=== PATIENT | female | born 1990 | race Caucasian/White ===

== ENCOUNTER 2016-10-23 19:53 | Emergency (ER) | payer OTHER ==
[2016-10-23 20:07] VITALS: BP 113/72
--- NOTE | 2016-10-23 20:36 | UC ---
Complaint Female HPI - HPI Summary HPI Summary: Pt delivered baby vaginally, no complications 09/22/16. Had some PP blood loss, but did not need transfusion or extra monitoring. By about 1 week PP was able to get by with panty liners and bleeding seemed minimal. It picked up this week , and today pt had large gush when she stood up after sitting. said it soaked her full-size pad as well as some of her clothing all at once. Passed a large clot at the time, but since then bleeding has been mild again. Called Ob office and they said it was probably normal. Denies fever, abdominal pain, back pain, foul odor from discharge, or dizziness/fainting. - History Of Current Complaint Chief Complaint: UCGU Stated Complaint: PERSONAL Time Seen by Provider: 10/23/16 20:13 Hx Obtained From: Patient Hx Last Menstrual Period: 11 months ago bleeding now ?: No Onset/Duration: Lasting Weeks Timing: Constant Severity Initially: Mild Severity Currently: Moderate Character: Dull - pressure Aggravating Factor(s): Nothing Alleviating Factor(s): Nothing Associated Signs And Symptoms: Positive: Vaginal Bleeding/Discharge - Allergies/Home Medications Allergies/Adverse Reactions: Allergies Allergy/AdvReac Type Severity Reaction Status Date / Time No Known Allergies Allergy Verified 10/23/16 20:07 Home Medications: Home Medications Multivit-Min W/Fe-FA [ and Iron] 10/23/16 [History] PMH/Surg Hx/FS Hx/Imm Hx Previously Healthy: Yes - Surgical History Surgical History: None - Family History Known Family History: Positive: Hypertension - Social History Lives: With Family Alcohol Use: None Substance Use Type: None Smoking Status (MU): Never Smoked Tobacco Review of Systems Constitutional: Negative Skin: Negative Eyes: Negative ENT: Negative Respiratory: Negative Cardiovascular: Negative Gastrointestinal: Negative Genitourinary: Other - vaginal bleeding Motor: Negative Neurovascular: Negative Musculoskeletal: Negative Neurological: Negative Psychological: Negative All Other Systems Reviewed And Are Negative: Yes Physical Exam Triage Information Reviewed: Yes Appearance: Well-Appearing, No Pain Distress, Well-Nourished Vital Signs: Initial Vital Signs Temp 98.4 F 10/23/16 20:01 Pulse 77 10/23/16 20:01 Resp 18 10/23/16 20:01 BP 113/72 10/23/16 20:01 Pulse Ox 100 10/23/16 20:01 Vital Signs Reviewed: Yes Eye Exam: Normal, Other - PERRL, pink lower eyelids Eyes: Positive: Conjunctiva Clear ENT Exam: Normal ENT: Positive: Normal ENT inspection, Hearing grossly normal, Pharynx normal, TMs normal Dental Exam: Normal Neck exam: Normal Neck: Positive: Supple, Nontender, No Lymphadenopathy Respiratory Exam: Normal Respiratory: Positive: Chest non-tender, Lungs clear, Normal breath sounds, No respiratory distress, No accessory muscle use Cardiovascular Exam: Normal Cardiovascular: Positive: RRR, No Murmur Abdomen Description: Positive: Nontender, No Organomegaly, Soft. Negative: CVA Tenderness (R), CVA Tenderness (L), Distended, Guarding, McBurney's Point Tenderness Musculoskeletal Exam: Normal Neurological Exam: Normal Psychological Exam: Normal Skin Exam: Normal Complaint Female Dx - Differential Dx/Diagnosis Provider Diagnoses: bleeding Discharge - Discharge Plan Condition: Stable Disposition: HOME Patient Education Materials: Bleeding (ED) Referrals: Ronnie Workman MD [Primary Care Provider] - Additional Instructions: Bloodwork sent to evaluate for anemia. As we discussed, your amount of bleeding and irregular pattern do sound like they are within the realm of normal. Sometimes a large clot is passed late from the site of placental attachment in the uterus. I would expect the bleeding to steadily decrease from here. If not, and especially if you develop fever, fatigue, fainting, or foul odor from your discharge, you should follow up promptly with your Ob-Product Safety Technician. Please don't hesitate to go to the emergency department if you start saturating 1 or more pads per hour.
[2016-10-24 10:55] LABS: Hematocrit 38 % (35-47); Hemoglobin 12.3 g/dl (12.0-16.0); Mean Corpuscular HGB Conc 33 g/dl (31-36); Mean Corpuscular Hemoglobin 28 pg (27-31); Mean Corpuscular Volume 87 fL (80-97); Mean Platelet Volume 9 um3 (7.4-10.4); Red Blood Count 4.34 10^6/ul (4.0-5.4); Red Cell Distribution Width 15 % (10.5-15); White Blood Count 9.2 10^3/ul (3.5-10.8)
== END 2016-10-23 20:45 | disposition home or self-care (01) ==
LOC: UCEAST 19:53
DX: O72.2 Delayed and secondary postpartum hemorrhage (principal)
CPT/HCPCS: 36415; 85025; 99211; G0463

== ENCOUNTER 2017-07-07 09:34 | Emergency (ER) | payer SELFPAY ==
[2017-07-07 09:48] VITALS: BP 106/72
--- NOTE | 2017-07-07 10:48 | UC ---
FLU HPI - HPI Summary HPI Summary: Pt presents with dry cough and sinus congestion that began yesterday. Her was recently diagnosed with the flu and she is concerned about this. Denies fever, chills, SOB, chest pain, abdominal pain, n/v/d/c, or body aches. - History of Current Complaint Chief Complaint: UCGeneralIllness Stated Complaint: FLU SYMPTOMS Time Seen by Provider: 07/07/17 10:39 Hx Obtained From: Patient Hx Last Menstrual Period: 06/09/17 Onset/Duration: Sudden Onset Severity Currently: Moderate Severity Initially: Moderate Pain Intensity: 5 Pain Scale Used: 0-10 Numeric - Allergy/Home Medications Allergies/Adverse Reactions: Allergies Allergy/AdvReac Type Severity Reaction Status Date / Time No Known Allergies Allergy Verified 07/07/17 09:45 Home Medications: Home Medications NK [No Home Medications Reported] 07/07/17 [History Confirmed 07/07/17] PMH/Surg Hx/FS Hx/Imm Hx Previously Healthy: Yes - Surgical History Surgical History: None - Family History Known Family History: Positive: Hypertension - Social History Occupation: Unemployed Lives: With Family Alcohol Use: None Substance Use Type: None Smoking Status (MU): Never Smoked Tobacco Review of Systems Constitutional: Negative Skin: Negative Eyes: Negative ENT: Sinus Congestion Respiratory: Cough Cardiovascular: Negative Gastrointestinal: Negative Neurovascular: Negative Neurological: Negative Psychological: Negative All Other Systems Reviewed And Are Negative: Yes Physical Exam - Summary Physical Exam Summary: GENERAL: NAD. WDWN. No pain distress. SKIN: No rashes, sores, ulcers, masses, lesions. HEENT: Head: AT/NC Eyes: EOM intact. Conjunctiva clear without inflammation or discharge. Ears: Hearing grossly normal. TMs intact, no bulging, erythema, or edema. Nose: Nasal mucosa pink and moist. NTTP maxillary and frontal sinus. Throat: Posterior oropharynx without exudates, erythema, or tonsillar enlargement. Uvula midline. NECK: Supple. Nontender. No lymphadenopathy. CHEST: CTAB. No r/r/w. No accessory muscle use. Breathing comfortably and in no distress. CV: RRR. Without m/r/g. Pulses intact. Brisk cap refill. NEURO: Alert. CN II-XII grossly intact. PSYCH: Age appropriate behavior. Triage Information Reviewed: Yes Vital Signs: Initial Vital Signs Temp 99.5 F 07/07/17 09:45 Pulse 100 07/07/17 09:45 Resp 20 07/07/17 09:45 BP 106/72 07/07/17 09:45 Pulse Ox 99 07/07/17 09:45 Flu Course/Dx - Course Course Of Treatment: Offered test for flu, but she declined after I explained pos/neg results would not change treatment. Advised rest, fluids, and ibuprofen for fevers/discomfort. - Differential Dx/Diagnosis Provider Diagnoses: Viral syndrome Discharge - Sign-Out/Discharge Documenting (check all that apply): Discharge - Discharge Plan Condition: Stable Disposition: HOME Patient Education Materials: Viral Syndrome (ED) Referrals: Ronnie Workman MD [Primary Care Provider] - Additional Instructions: If you develop a fever, shortness of breath, chest pain, new or worsening symptoms - please call your PCP or go to the ED. - Billing Disposition and Condition Condition: STABLE Disposition: HOME
== END 2017-07-07 10:55 | disposition home or self-care (01) ==
LOC: UCEAST 09:34
DX: B34.9 Viral infection, unspecified (principal)
CPT/HCPCS: 99211; G0463

== ENCOUNTER 2017-10-12 10:18 | Emergency (ER) | payer SELFPAY ==
[2017-10-12 10:35] VITALS: BP 95/61
--- NOTE | 2017-10-12 11:20 | ED ---
HPI Febrile Illness - HPI Summary HPI Summary: 27F presents with fever and nausea and left breast swelling since last night. She admits to a headache. She denies any cough. no chest pain or SOB. has rash on left breast. is trying to wean child off breast milk. has been taking tyenlol. no urinary symptoms. no sore throat. no ear pain. no abdominal pain. no diarrhea. never had this before. - History of Current Complaint Hx Last Menstrual Period: breast feeding Pain Intensity: 8 <Natasha Mansfield - Last Filed: 10/12/17 11:29> <Pepe Bhardwaj - Last Filed: 10/12/17 12:23> - History of Current Complaint Chief Complaint: UCGeneralIllness Time Seen by Provider: 10/12/17 11:07 - Allergy/Home Medications Allergies/Adverse Reactions: Allergies Allergy/AdvReac Type Severity Reaction Status Date / Time No Known Allergies Allergy Verified 10/12/17 10:35 PMH/Surg Hx/FS Hx/Imm Hx Endocrine/Hematology History: Denies: Hx Anticoagulant Therapy Respiratory History: Denies: Hx Asthma Infectious Disease History: No Infectious Disease History: Denies: Traveled Outside the [place] in Last 30 Days - Family History Known Family History: Positive: Hypertension - Social History Alcohol Use: None Substance Use Type: Reports: None Smoking Status (MU): Never Smoked Tobacco <Natasha Mansfield - Last Filed: 10/12/17 11:29> Review of Systems Positive: Fever Negative: Chest Pain Negative: Shortness Of Breath Positive: Nausea. Negative: Abdominal Pain Positive: Rash All Other Systems Reviewed And Are Negative: Yes <Natasha Mansfield - Last Filed: 10/12/17 11:29> Physical Exam Triage Information Reviewed: Yes Vital Signs On Initial Exam: Initial Vitals Temp Pulse Resp BP Pulse Ox 99.7 F 120 20 95/61 99 10/12/17 10:31 10/12/17 10:31 10/12/17 10:31 10/12/17 10:31 10/12/17 10:31 Vital Signs Reviewed: Yes Appearance: Positive: Well-Appearing Skin: Positive: Warm, Dry, Other - erythema to left breast Head/Face: Positive: Normal Head/Face Inspection Eyes: Positive: Normal, Conjunctiva Clear ENT: Positive: Pharynx normal Respiratory/Lung Sounds: Positive: Clear to Auscultation, Breath Sounds Present Cardiovascular: Positive: Normal, RRR Abdomen Description: Positive: Nontender, Soft Bowel Sounds: Positive: Present Musculoskeletal: Positive: Normal Neurological: Positive: Normal Psychiatric: Positive: Normal <Natasha Mansfield - Last Filed: 10/12/17 11:29> Vital Signs On Initial Exam: Initial Vitals Temp Pulse Resp BP Pulse Ox 99.7 F 120 20 95/61 99 10/12/17 10:31 10/12/17 10:31 10/12/17 10:31 10/12/17 10:31 10/12/17 10:31 <Pepe Bhardwaj - Last Filed: 10/12/17 12:23> Diagnostics - Vital Signs Vital Signs Temp Pulse Resp BP Pulse Ox 10/12/17 10:31 99.7 F 120 20 95/61 99 <Natasha Mansfield - Last Filed: 10/12/17 11:29> - Vital Signs Vital Signs Temp Pulse Resp BP Pulse Ox 10/12/17 10:31 99.7 F 120 20 95/61 99 <Pepe Bhardwaj - Last Filed: 10/12/17 12:23> Course/Dx - Course Course Of Treatment: 27F presents with fever and nausea and left breast swelling since last night. She admits to a headache. She denies any cough. no chest pain or SOB. has rash on left breast. is trying to wean child off breast milk. has been taking tyenlol. no urinary symptoms. no sore throat. no ear pain. no abdominal pain. no diarrhea. never had this before. on exam has erythema to left breast with tenderness. lungs CTA. abdomen soft nontender. will treat with Dicloxacillin for mastitis. gave nauea meds. patient understand and agrees with plan. - Febrile Illness Differential Diagnoses: Pneumonia, Other: - mastitis, pharyngitis <Natasha Mansfield - Last Filed: 10/12/17 11:29> <Pepe Bhardwaj - Last Filed: 10/12/17 12:23> - Diagnoses Provider Diagnoses: Mastitis Discharge - Sign-Out/Discharge Documenting (check all that apply): Discharge/Admit/Transfer - Billing Disposition and Condition Condition: GOOD Disposition: Home <Natasha Mansfield - Last Filed: 10/12/17 11:29> - Billing Disposition and Condition Condition: GOOD Disposition: Home <Pepe Bhardwaj - Last Filed: 10/12/17 12:23> - Discharge Plan Condition: Good Disposition: HOME Prescriptions: Dicloxacillin CAP* [Dynapen CAP*] 500 mg PO QID #40 cap Ondansetron ODT TAB* [Zofran 4 MG Odt TAB*] 4 mg PO Q6H PRN #12 tab.odt PRN Reason: Nausea Patient Education Materials: Mastitis (ED) Referrals: [facility] [Outside] Additional Instructions: Take Dicloxacillin four a day for 10 days Take ibuprofen every 6 hours apply ice on area Continue breast feeding Take zofran every 6 hours for nausea Establish care with primary Return to ED if develop any new or worsening symptoms Per institutional requirements, I have reviewed the chart, however, I was not consulted specifically or made aware of this patient by the above midlevel provider. I did not personally evaluate, interact with , or disposition this patient.
== END 2017-10-12 11:26 | disposition home or self-care (01) ==
LOC: UCEAST 10:18
DX: N61.0 Mastitis without abscess (principal); R11.0 Nausea; R51 Headache
CPT/HCPCS: 99212; G0463

== ENCOUNTER 2018-05-11 18:14 | Emergency (ER) | payer SELFPAY ==
[2018-05-11] MEDS ORDERED: Ondansetron ODT TAB* 4 MG PO ONE (19:09)
[2018-05-11] MEDS ORDERED: NS 0.9% 1000 ML** 1,000 ML IV ONE (19:10)
--- NOTE | 2018-05-11 19:12 | UC ---
UC General HPI - HPI Summary HPI Summary: pt c/o n/v/d x 6 after she ate at [email or web address] this afternoon. unable to sip water without vomiting. + abdominal cramping but no abdominal pain. stool is watery with No blood or mucus. no fever, Hx IBD, travel, sick contacts or recent antibiotic use. she c/o "feeling weak and dizzy" upon standing and feels "dehydrated". - History of Current Complaint Chief Complaint: UCGI Stated Complaint: VOMITING/DIARRHEA Time Seen by Provider: 05/11/18 19:04 Hx Obtained From: Patient Hx Last Menstrual Period: 04/13/18 Pain Intensity: 9 Associated Signs & Symptoms: Positive: Diarrhea, Nausea, Vomiting. Negative: Abdominal Pain, Fever, Hematemesis - Allergy/Home Medications Allergies/Adverse Reactions: Allergies Allergy/AdvReac Type Severity Reaction Status Date / Time No Known Allergies Allergy Verified 10/12/17 10:35 PMH/Surg Hx/FS Hx/Imm Hx Previously Healthy: Yes Other History Of: Negative For: Anticoagulant Therapy - Surgical History Surgical History: Yes Surgery Procedure, Year, and Place: LAPAROSCOPY - Family History Known Family History: Positive: Hypertension - Social History Alcohol Use: Rare Substance Use Type: None Smoking Status (MU): Never Smoked Tobacco Review of Systems All Other Systems Reviewed And Are Negative: Yes Constitutional: Positive: Negative Skin: Positive: Negative Eyes: Positive: Negative ENT: Positive: Negative Respiratory: Positive: Negative Cardiovascular: Positive: Negative Gastrointestinal: Positive: Vomiting, Diarrhea, Nausea Genitourinary: Positive: Negative Motor: Positive: Weakness Neurovascular: Positive: Negative Musculoskeletal: Positive: Negative Neurological: Positive: Negative Psychological: Positive: Negative Is Patient Immunocompromised?: No Physical Exam Triage Information Reviewed: Yes Appearance: Ill-Appearing - but non toxic. Vital Signs: Initial Vital Signs Temp 98.2 F 05/11/18 18:39 Pulse 111 05/11/18 18:39 Resp 17 05/11/18 18:39 BP 94/54 05/11/18 18:39 Pulse Ox 100 05/11/18 18:39 Vital Signs Reviewed: Yes Eyes: Positive: Conjunctiva Clear ENT: Positive: Pharynx normal, TMs normal, Other - lips and tongue are dry. Negative: Nasal congestion, Nasal drainage Neck: Positive: Supple, Nontender, No Lymphadenopathy Respiratory: Positive: Lungs clear, Normal breath sounds, No respiratory distress Cardiovascular: Positive: No Murmur, Tachycardia Abdomen Description: Positive: Nontender, No Organomegaly, Soft. Negative: Distended, Guarding Bowel Sounds: Positive: Hyperactive Musculoskeletal: Positive: ROM Intact Neurological: Positive: Alert Psychological: Positive: Normal Response To Family, Age Appropriate Behavior Skin Exam: Normal Re-Evaluation - Re-Evaluation First Eval Re-Evaluation Time: 19:50 Change: Improved - pt reports feeling better. no nausea. tongue is moist. she is taking sips of gingerale. Second Eval Re-Evaluation Time: 20:05 Change: Improved - requesting d/c to home. Course/Dx - Differential Dx - Multi-Symptom Differential Diagnoses: Other - non toxic. no acute abdomen. no risk for parasitic diarrhea or c-diff colitis and no travel hx. no hx ibd. - Diagnoses Provider Diagnosis: Vomiting, Diarrhea, Dehydration symptoms Discharge - Sign-Out/Discharge Documenting (check all that apply): Patient Departure All imaging exams completed and their final reports reviewed: No Studies - Discharge Plan Condition: Improved Disposition: HOME Prescriptions: Ondansetron ODT TAB* [Zofran 4 MG Odt TAB*] 4 mg PO Q6H PRN #15 tab.odt PRN Reason: Nausea/Vomiting Patient Education Materials: Acute Nausea and Vomiting (ED), Dehydration (ED), Acute Diarrhea (ED) Referrals: Felice Fuentes MD [Medical Doctor] - 3 Days - Billing Disposition and Condition Condition: IMPROVED Disposition: Home
[2018-05-11 20:10] VITALS: BP 116/56
== END 2018-05-11 20:20 | disposition home or self-care (01) ==
LOC: UCCORT 18:14
DX: R19.7 Diarrhea, unspecified (principal); R42 Dizziness and giddiness; R11.2 Nausea with vomiting, unspecified; R68.2 Dry mouth, unspecified
CPT/HCPCS: 96360; 99212; A9270-GY; G0463

== ENCOUNTER 2019-02-26 10:29 | Emergency (ER) | payer BC ==
[2019-02-26 10:44] VITALS: BP 109/74
--- NOTE | 2019-02-26 11:03 | UC ---
Skin Complaint HPI - HPI Summary HPI Summary: 29-year-old female presents with concern for a dark reddish purple spots on her left foot. States yesterday morning she noticed a small spot to the lateral aspect of her left foot near the first MTP. States it was mildly tender to touch. No known injury. This morning she woke up and the spot was a little larger however was no longer tender. No personal or family history of bleeding disorders. Denies fever, chills, increased warmth, swelling, or joint pain. - History of Current Complaint Chief Complaint: UCLowerExtremity Time Seen by Provider: 02/26/19 10:38 Stated Complaint: FOOT COMPLAINT Hx Obtained From: Patient Hx Last Menstrual Period: 02/24/19 Pain Intensity: 5 - Allergy/Home Medications Allergies/Adverse Reactions: Allergies Allergy/AdvReac Type Severity Reaction Status Date / Time No Known Allergies Allergy Verified 02/26/19 10:39 Home Medications: Home Medications NK [No Home Medications Reported] 02/26/19 [History Confirmed 02/26/19] PMH/Surg Hx/FS Hx/Imm Hx Previously Healthy: Yes - Denies significant PMH Other History Of: Negative For: Anticoagulant Therapy - Surgical History Surgical History: Yes Surgery Procedure, Year, and Place: LAPAROSCOPY 2011 - Family History Known Family History: Positive: Hypertension - Social History Occupation: Employed Full-time Lives: With Family Alcohol Use: Rare Substance Use Type: None Smoking Status (MU): Never Smoked Tobacco Review of Systems All Other Systems Reviewed And Are Negative: Yes Constitutional: Negative: Fever, Chills Skin: Positive: Other - See HPI Respiratory: Positive: Negative Cardiovascular: Positive: Negative Gastrointestinal: Positive: Negative Genitourinary: Positive: Negative Musculoskeletal: Positive: Negative Neurological: Positive: Negative Is Patient Immunocompromised?: No Physical Exam - Summary Physical Exam Summary: GENERAL APPEARANCE: Well developed, well nourished, alert and cooperative, and appears to be in no acute distress. CARDIAC: Normal S1 and S2. No S3, S4 or murmurs. Rhythm is regular. There is no peripheral edema, cyanosis or pallor. Extremities are warm and well perfused. Capillary refill is less than 2 seconds. Peripheral pulses intact. LUNGS: Clear to auscultation without rales, rhonchi, wheezing or diminished breath sounds. ABDOMEN: Positive bowel sounds. Soft, nondistended, nontender. No guarding or rebound. No masses or hepatosplenomegally. MUSKULOSKELETAL: ROM intact to all extremities. No joint erythema or tenderness. Normal muscular development. Normal gait. EXTREMITIES: Non-tender, 3 cm circular area of ecchymosis to the lateral left foot at the MTP. Full ROM. No gross deformity. Circulation and sensation intact. SKIN: Skin normal color, texture and turgor. Triage Information Reviewed: Yes Vital Signs: Initial Vital Signs Temp 99.2 F 02/26/19 10:39 Pulse 75 02/26/19 10:39 Resp 18 02/26/19 10:39 BP 109/74 02/26/19 10:39 Pulse Ox 100 02/26/19 10:39 Vital Signs Reviewed: Yes Course/Dx - Course Course Of Treatment: 29-year-old female presents with concern for a dark reddish purple spots on her left foot. States yesterday morning she noticed a small spot to the lateral aspect of her left foot near the first MTP. States it was mildly tender to touch. No known injury. This morning she woke up and the spot was a little larger however was no longer tender. No personal or family history of bleeding disorders. Denies fever, chills, increased warmth, swelling, or joint pain. Afebrile. Vital signs stable. Patient had a non-tender, 3 cm circular area of ecchymosis to the lateral left foot at the MTP. Full ROM. No gross deformity. Circulation and sensation intact. Discussed with patient that exam does not appear to be an infectious process and I'm recommending watchful waiting for a contusion of the left foot. She is to return here in one week if symptoms are not improving. Anticipatory guidance warning symptoms were reviewed with the patient. Verbalizes understanding and agrees with plan of care. - Differential Diagnoses - Skin Complaint Differential Diagnoses: Cellulitis, Contact Dermatitis, Local Allergic Reaction - Diagnoses Provider Diagnosis: Contusion of left foot Discharge ED - Sign-Out/Discharge Documenting (check all that apply): Patient Departure All imaging exams completed and their final reports reviewed: No Studies - Discharge Plan Condition: Stable Disposition: HOME Patient Education Materials: Contusion in Adults (ED) Referrals: No Primary Care Phys,NOPCP [Primary Care Provider] - Additional Instructions: You appear to have a contusion (bruise) of the foot. I would recommend some watchful waiting at this time. Take [id number] acetaminophen (Tylenol) or ibuprofen (Advil, Motrin) according directions as needed for any pain. Return here in one week if things are not improving. Seek immediate medical attention you develop fever greater than 100.5 F, redness that rapidly spreads, swelling of the foot, severe pain that is not managed with [id number] pain medication, or any worsening of symptoms. - Billing Disposition and Condition Condition: STABLE Disposition: Home
== END 2019-02-26 11:22 | disposition home or self-care (01) ==
LOC: UCEAST 10:29
DX: S90.32XA Contusion of left foot, initial encounter (principal); X58.XXXA Exposure to other specified factors, initial encounter; Y92.9 Unspecified place or not applicable
CPT/HCPCS: 99211; G0463